=== PATIENT | female | born 1950 | race Caucasian/White ===

== ENCOUNTER → 2017-11-06 14:34 | Outpatient (CLI) | payer MEDICARE, OTHER, SELFPAY ==
--- NOTE | 2017-11-06 | DI.MRI.S_ITS ---
PROCEDURE: MR KNEE RT WO CON INDICATIONS: 67 year-old female with right knee pain for 2 months. TECHNIQUE: Noncontrast sagittal PD fast spin echo and T2 fast spin echo with fat saturation, sagittal 3-D FLASH with fat saturation; coronal T1 spin echo and PD fast spin echo with fat saturation, and axial PD fast spin echo with fat saturation through the knee. COMPARISON: None. FINDINGS: Image quality: Excellent. Menisci: On coronal image 21, there is a full thickness tear involving the posterior root ligament insertion of the medial meniscus, with resultant extrusion of the medial meniscal body. The lateral meniscus demonstrates normal morphology and internal signal. Cruciate ligaments: The anterior and posterior cruciate ligaments appear intact. Medial structures: The medial collateral ligament appears intact. The posterior oblique ligament, semimembranosus tendon insertions, oblique popliteal ligament, and meniscocapsular junction appear intact. Visualized portions of the pes anserinus tendons appear normal. No abnormal bursal fluid. Lateral structures: The lateral collateral ligament, long and short heads of the biceps femoris tendon appear intact. The popliteus tendon appears normal; the popliteofibular ligament appears intact. The posterosuperior and anteroinferior popliteomeniscal fascicles appear intact. The arcuate ligament appears intact, just anterior to the lateral inferior geniculate artery. Iliotibial band appears normal. Anterior structures: The quadriceps and patellar tendons appear intact. Patellar alignment is normal. No femoral trochlear dysplasia or ventral trochlear prominence. No edema in the infrapatellar fat pad. Bones and cartilage: No bone marrow contusions or fractures. There is regional full thickness cartilage loss involving the weightbearing portions of the medial femoral condyle and medial tibial plateau, with patchy subchondral marrow edema. The patellofemoral and lateral femorotibial compartment cartilage demonstrates normal thickness and signal. Joint space: There is small knee joint effusion. There is moderate unruptured Tang's cyst, measuring up to 5.1 cm in craniocaudal dimensions. No intra-articular bodies. IMPRESSION: 1. Full-thickness tear involves the posterior root ligament insertion of the medial meniscus, with resultant extrusion of the medial meniscal body. 2. 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 3. Moderate unruptured Tang's cyst and small knee joint effusion. Dictated by: Prabhu Pierce M.D. on 11/06/2017 at 15:52 Approved by: Prabhu Pierce M.D. on 11/06/2017 at 15:59
== END ==
PROVIDERS: Visit Provider Physical Medicine & Rehabilitation Pain Medicine
DX: S83.241A Other tear of medial meniscus, current injury, right knee, initial encounter (principal); M25.461 Effusion, right knee; M71.21 Synovial cyst of popliteal space [Baker], right knee
CPT/HCPCS: 73721

== ENCOUNTER → 2018-11-29 10:58 | Outpatient (CLI) | payer MEDICARE, OTHER, SELFPAY ==
--- NOTE | 2018-11-29 | DI.MRI.S_ITS ---
PROCEDURE: MR KNEE LT WO CON INDICATIONS: Pain in left knee TECHNIQUE: Noncontrast sagittal PD fast spin echo and T2 fast spin echo with fat saturation, sagittal 3-D FLASH with fat saturation; coronal T1 spin echo and PD fast spin echo with fat saturation, and axial PD fast spin echo with fat saturation through the knee. COMPARISON: [facility] [place], CR, XR KNEE ARTHRITIC SERIES LT, 11/18/2018, 13:34. [facility] [place], CR, XR KNEE ARTHRITIC SERIES RT, 09/17/2017, 14:16. FINDINGS: Image quality: Excellent. Menisci: There is medial meniscal extrusion. There is a radial tear involving the posterior horn the medial meniscus. More extensive degenerative tear is noted in the body and posterior horn of the medial meniscus. The lateral meniscus demonstrates normal morphology and internal signal. The meniscal root ligaments appear intact. Cruciate ligaments: The anterior and posterior cruciate ligaments appear intact. Medial structures: The medial collateral ligament appears intact. The posterior oblique ligament, semimembranosus tendon insertions, oblique popliteal ligament, and meniscocapsular junction appear intact. Visualized portions of the pes anserinus tendons appear normal. Trace pes anserinus bursal fluid is noted. Lateral structures: The lateral collateral ligament, long and short heads of the biceps femoris tendon appear intact. The popliteus tendon appears normal; the popliteofibular ligament appears intact. The posterosuperior and anteroinferior popliteomeniscal fascicles appear intact. The arcuate and fabellofibular ligaments appear intact, on either side of the lateral inferior geniculate artery. Iliotibial band appears normal. Anterior structures: The quadriceps and patellar tendons appear intact. There is mild edema in the proximal attachment of patellar tendon suspicious for mild tendinitis. Patellar alignment is normal. No femoral trochlear dysplasia or ventral trochlear prominence. No edema in the infrapatellar fat pad. Bones and cartilage: There is a 0.5 cm enchondroma in the distal femoral metaphysis. No fractures. There is mild cartilage thinning and fibrillation of the medial and lateral femorotibial compartments. Joint space: There is normal knee joint effusion. There is a small Tang's cyst. Fluid signal in posterior knee adjacent to the Tang's cyst is suspicious for leakage or rupturing of the Tang's cyst. Normal appearing synovial plicae are incidentally noted. IMPRESSION: 1. Medial meniscal extrusion. A radial tear is present in the posterior horn of the medial meniscus. There is also degenerative tear of both body and posterior horn of the medial meniscus. 2. Suspect a partially ruptured Tang's cyst. 3. Mild cartilage thinning and fibrillation of the medial and lateral femorotibial compartments. 4. Mild patellar tendinitis. 5. A 1.5 cm enchondroma in the distal femoral metaphysis. 6. Small knee joint effusion Dictated by: Katie Freitas M.D. on 11/29/2018 at 11:56 Approved by: Katie Freitas M.D. on 11/29/2018 at 18:49
== END ==
PROVIDERS: PCP Internal Medicine; Visit Provider Physical Medicine & Rehabilitation Pain Medicine
DX: M25.562 Pain in left knee (principal); S83.242A Other tear of medial meniscus, current injury, left knee, initial encounter; M76.52 Patellar tendinitis, left knee; D16.22 Benign neoplasm of long bones of left lower limb; M25.462 Effusion, left knee
CPT/HCPCS: 73721

== ENCOUNTER → 2019-06-02 12:01 | Outpatient (CLI) | payer MEDICARE, OTHER, SELFPAY ==
[2019-06-02 12:30] LABS: Add Manual Diff / Slide Review NO; Basophils Absolute Auto 0 /uL (0-100); Basophils Percent Auto 0.7 % (0-2); Eosinophils Absolute Auto 100 /uL (0-450); Eosinophils Percent Auto 2.4 % (2-4); Hemoglobin 15.1 g/dL (12.0-16.0); Lymphocytes Absolute Auto 1400 /uL (1100-4500); Lymphocytes Percent Auto 22.5 % (25-40); Mean Corpuscular HGB Conc 34.3 % (30-36); Mean Corpuscular Hemoglobin 31.4 PG (26-34); Mean Corpuscular Volume 91.5 fL (80-100); Monocytes Absolute Auto 500 /uL (0-900); Monocytes Percent Auto 8.2 % (3-14); Neutrophils Absolute Auto 4000 /uL (1500-7000); Neutrophils Percent Auto 66.2 % (50-75); Platelet Count 251 X10^3/uL (150-400); Red Blood Cell Count 4.82 X10^6/uL (4.0-5.2); White Blood Cell Count 6.1 X10^3/uL (4.5-11.0)
[2019-06-02 13:05] LABS: Carbon Dioxide 32 mmol/L (22-32); Chloride 101 mmol/L (98-107); HEMOLYSIS 26 (0-50); Potassium 4.8 mmol/L (3.4-5.1); Sodium 141 mmol/L (137-145)
== END ==
PROVIDERS: PCP Internal Medicine; Visit Provider Orthopaedic Surgery
DX: Z01.818 Encounter for other preprocedural examination (principal); Z01.812 Encounter for preprocedural laboratory examination
CPT/HCPCS: 36415; 80051; 85025; 93005; 93010

== ENCOUNTER 2019-06-25 09:50 | Day surgery (SDC) | payer MEDICARE, OTHER, SELFPAY ==
[2019-06-16 14:36] VITALS: BMI 28.9
[2019-06-25] VITALS (9 sets, daily range): BP systolic 91–150; BP diastolic 46–86; PULSE 74–87; RESP 13–20; TEMP 36.1–36.7; O2SAT 95–99; BMI 28.5
[2019-06-25] MEDS: LACTATED RINGERS 1,000 ML 42 ML IV (10:15)
[2019-06-25] MEDS: ACETAMINOPHEN 325 MG TABLET 975 MG PO (10:36)
[2019-06-25] MEDS: PREGABALIN 75 MG CAPSULE PO (10:37)
[2019-06-25] MEDS: CELECOXIB 200 MG CAPSULE PO (10:37)
--- NOTE | 2019-06-25 11:11 | SUR.PREOP ---
Pt. was c/o some nausea and l lot of anxiety. Notified anesthesia, received orders to administer 1mg versed IV now. At the time this author was about to administer the versed, the pt. had more questions for the Dr's. Nurse gave the pt. the option to hold off on versed so she (the pt.) could get her questions/needs addressed, pt agreed with holding off on versed for the time.
[2019-06-25] MEDS: MIDAZOLAM 2 MG/2 ML VIAL 1 MG IV (11:25)
--- NOTE | 2019-06-25 11:25 | SUR.PREOP ---
pt. medicated with 1mg versed IV at this time. questions have been addressed with piper
--- NOTE | 2019-06-25 11:29 | PM.PREOP ---
Pre-operative Note Interval Note History & Physical reviewed/Exam performed by Physician: Yes Changes to H&P: No
--- NOTE | 2019-06-25 11:29 | PM.OP.1 ---
Operative Date/Time/Diagnoses Date of procedure: 06/25/19 Time of procedure: 12:57 Pre-op diagnosis: Medial compartment osteoarthritis left knee Post-op diagnosis: same Procedure & Clinicians Procedure: Left knee medial compartment arthroplasty Same procedure as scheduled: Yes Indications: The patient presents today for medial compartment knee arthroplasty after failure of conservative treatment. The nature of the procedure including the risks and benefits, alternatives, postoperative course and expected outcome were discussed and all questions answered. Consent was obtained. Operative site confirmed and marked. Surgeon: Fernando Eaton [employer] Supervisor: Leon Potter Anesthesia Type: General and Local Operative Notes Findings: There was full-thickness cartilage loss over the medial femoral condyle. The patellofemoral joint was pristine. Closure Type: primary Specimen(s): none sent Prosthetic devices, grafts, tissues, transplants, or devices: JUK unicompartmental knee: 3 femur, 4 tibia and 8 mm polyethylene tray. Applied: implant(s) Blood products transfused: none Tourniquet time (min): 43 Procedure in detail: The patient was taken to the operative suite and placed under general anesthesia. The patient received prophylactic antibiotics 1 g of IV tranexamic acid prior to surgery. The lateral aspect of the leg was prepped and the knee injected with 20 mL of 1% lidocaine with epinephrine. The leg was prepped and draped in usual sterile fashion. The leg was exsanguinated with an Esmarch dressing and the tourniquet raised to 250 torr. A 10 cm medial parapatellar incision and arthrotomy was then made. The anterior aspect of the fat pad and medial meniscus was resected. The knee was then flexed and the tibia alignment guide placed. The proximal tibial cut was made at depth of 5 mm. Gaps were checked with blocks insuring that a 8 mm block fit in extension and a 6 mm block in flexion. The distal femoral cut was then made utilizing a 8 mm block. All remaining meniscus was then resected. Soft tissues were then injected with a combination of 40 mL of quarter percent Marcaine with epinephrine, 20 mL of Exparel. The femur was sized and the appropriate cutting guide placed with a 6 mm block. The peg holes were drilled and chamfer cuts made. Next the tibia was sized and drilled with the appropriate spoon trial. Trial femoral component and poly were then placed and the knee ranged. The knee had good restorationist of soft tissue tension without over correction. Range of motion was full. The trial components were removed. The knee was cleansed with Pulsavac irrigation and dried. The components were then cemented with high viscosity vacuum mixed bone cement. The knee was held in extension until the cement had adequately cured. The knee was then irrigated and inspected for any further debris. The extensor mechanism was closed at 90? of flexion with a few interrupted #1 Vicryl sutures and a running O V-LOC suture. The knee was then filled with 50 mL of solution containing 1 g of tranexamic acid and 10 mL of 0.5% Marcaine. The subcutaneous tissue was closed with 2-0 Vicryl. The skin was closed with a running 3 0 V-LOC suture and surgical adhesive. An Aquacel dressing was applied. The leg was then wrapped with an Daniel which will be kept on for the first 24 hours. The patient tolerated the procedure well and was returned to recovery room in good condition. Complications: none Post-operative Condition: stable Disposition: same day surgery Plan for aftercare: Standard postoperative protocol for partial knee replacement. Discharge to home. Follow-up in 2 weeks.
[2019-06-25] MEDS: CEFAZOLIN 2 GM/100 ML FROZ.PIGGY IV (11:42)
--- NOTE | 2019-06-25 12:09 | SUR.OPER ---
Supine on padded OR bed. Pillow under head, arms secured on padded armboards <90 degree abduction. Safety belt across torso. Non-operative leg secured with tape over blanket over lower leg. Foam padded brace at thigh of operative leg.
[2019-06-25] MEDS: LIDOCAINE 1% W/EPI 20 ML INJ (12:17)
[2019-06-25] MEDS: BUPIVACAINE 0.5% W/ EPI (PF) 20 ML, BUPIVACAINE LIPOSOME 266 MG, SODIUM CHLORIDE 0.9% 2... INJ (12:19)
[2019-06-25] MEDS: BUPIVACAINE 0.5% W/ EPI (PF) 10 ML, TRANEXAMIC ACID 1,000 MG, SODIUM CHLORIDE 0.9% 20 ML INJ (12:20)
--- NOTE | 2019-06-25 12:41 | SUR.OPER ---
GLASSES TO PACU WITH PATIENT IN LABELED CONTAINER
[2019-06-25] MEDS: ONDANSETRON 4 MG/2 ML INJ IV (13:11)
[2019-06-25] MEDS: fentaNYL 100 MCG/2 ML INJ IV (13:16)
== END 2019-06-25 12:59 | disposition home or self-care (01) ==
PROVIDERS: PCP Internal Medicine; Visit Provider Orthopaedic Surgery
PROC: (CPT 27446; principal; 2019-06-25 11:45)
DX: M17.12 Unilateral primary osteoarthritis, left knee (principal)
CPT/HCPCS: 27446; C1776; C9290; J0690; J1100; J1170; J2250; J2405; J2704; J3010

== ENCOUNTER → 2020-10-09 13:56 | Outpatient (CLI) | payer MEDICARE, OTHER, SELFPAY ==
--- NOTE | 2020-10-09 | DI.MRI.S_ITS ---
PROCEDURE: MR LUMBAR SPINE WO CON INDICATIONS: Radiculopathy, lumbar region TECHNIQUE: Noncontrast sagittal T1 spin echo and T2 fast echo, sagittal STIR, axial T1 and T2 fast spin echo through the lumbar spine. In cases with scoliosis, additional coronal T2 fast spin echo may be performed. COMPARISON: [facility], RG, MRI L-SPINE W/O CONTRAST, 12/01/2016, 13:30. FINDINGS: Image quality: Excellent. Alignment and Curvature: There is normal bony alignment. Bone Marrow: Marrow is of normal overall signal. No acute vertebral body compression fractures. Spinal Cord: Conus medullaris terminates at the normal level. Visualized cord demonstrates normal signal and size. Paraspinous Soft Tissues: No paravertebral masses. T12-L1: No spinal canal or neural foraminal stenosis. L1-L2: No spinal canal or neural foraminal stenosis. L2-L3: Disc bulge flattens the ventral thecal sac without mass effect upon the traversing L3 nerve roots. Foraminal components of the disc bulge contribute to mild bilateral neural foraminal narrowing. There is facet hypertrophy with small facet effusions. L3-L4: No spinal canal or neural foraminal stenosis. L4-L5: Disc bulge flattens and indents the ventral thecal sac. No mass effect upon the traversing L5 nerve roots. Foraminal components of the disc bulge and facet hypertrophy contribute to moderate bilateral neural foraminal narrowing. L5-S1: Disc bulge flattens the ventral thecal sac with mild mass effect upon the descending S1 nerve roots. Mild bilateral neural foraminal narrowing due to foraminal components of the disc bulge.. IMPRESSION: Degenerative changes in the lower lumbar spine which have slightly progressed at L4-L5 when compared with the 2017 examination. Moderate neural foraminal stenosis at L4-L5 with abutment of the exiting L4 nerve roots. Correlate for any corresponding L4 radicular symptoms. Mild displacement of the descending S1 nerve roots by disc material at L5-S1, similar to the prior study. Correlate for any corresponding radicular symptoms. Approved by: Jimmy Esquivel M.D. on 10/11/2020 at 9:56
== END ==
PROVIDERS: PCP Internal Medicine; Referring Provider Physical Medicine & Rehabilitation Pain Medicine; Visit Provider Physical Medicine & Rehabilitation Pain Medicine
DX: M47.26 Other spondylosis with radiculopathy, lumbar region (principal); M48.061 Spinal stenosis, lumbar region without neurogenic claudication; M48.07 Spinal stenosis, lumbosacral region
CPT/HCPCS: 72148

== ENCOUNTER → 2023-04-05 13:48 | Outpatient (CLI) | payer MEDICARE, OTHER, SELFPAY ==
--- NOTE | 2023-04-05 | DI.ECHO.S_ITS ---
[facility]+ [facility] +---------+ : : [address] : : : : [id number] : : : : Phone: [phone]+ Echocardiogram Report + + :Name: ROSHAN BACON Study Date: 04/05/2023 Height: 65 in : :[facility] ReadingLocation: Weight: 173 lb : : Gender: Female BSA: 1.9 m2 : :: 1950 Age: 73 yrs BP: 153/75 mmHg: :Reason For Study: Shortness of Breath : :Ordering Physician: ALICIA, : :JACQUIE Performed By: Laura Roth : :Referring: JACQUIE VARGAS : + + Interpretation Summary Normal sinus rhythm. Normal LV size, wall thickness, wall motion and LV systolic function. EF is 60-65%. Stage I diastolic dysfunction. Normal chamber sizes. Aortic sclerosis without stenosis. No prior study available for comparison. Procedure: A two-dimensional transthoracic echocardiogram with color flow and Doppler was performed. The study quality was technically adequate. There is no prior echocardiogram noted for this patient. The patient was in normal sinus rhythm during the exam. Left Ventricle: The left ventricle is normal in size. The ejection fraction is estimated to be 60-65%. Diastolic parameters suggest a relaxation abnormality of the left ventricle, consistent with probable normal filling pressures. Right Ventricle: The right ventricle is normal in size and function. Atria: The left atrial size is normal. Right atrial size is normal. There is no Doppler evidence for an interatrial shunt. Mitral Valve: The mitral valve is normal. There is no mitral valve stenosis. There is no mitral regurgitation noted. Aortic Valve: The aortic valve is trileaflet. There is mild aortic valve sclerosis. There is no aortic valve stenosis. No aortic regurgitation is present. Tricuspid Valve: The tricuspid valve is normal. There is no tricuspid stenosis. There is trace tricuspid regurgitation. Pulmonary artery pressures cannot be estimated because of the lack of a measurable TR jet velocity. Pulmonic Valve: The pulmonic valve is not well visualized. There is no pulmonic valvular stenosis. There is trace pulmonic regurgitation. Great Vessels: The aortic root is normal size. The ascending aorta is normal in size. The pulmonary artery is normal size. The IVC is of normal diameter and collapses greater than 50% with a sniff. This suggests a low right atrial pressure of 3 mm Hg. Pericardium/ Pleura There is a trivial pericardial effusion noted. There is no pleural effusion. MMode/2D Measurements & Calculations LVIDd: 4.1 cm LVOT diam: 1.8 cm LVIDs: 2.8 cm Ao root diam: 2.9 cm FS: 31.7 % asc Aorta Diam: 3.3 cm IVSd: 0.90 cm LVPWd: 1.4 cm LV sharma. diameter/BSA (cm/m^2): 2.2 LV sys. diameter/BSA (cm/m^2): 1.5 LA A2 area: 11.3 cm2 LVLs ap4: 6.3 cm LA A4 area: 11.5 cm2 LA length (vol): 4.9 cm LA vol: 22.5 ml LA vol index: 12.1 ml/m2 LVLd ap2: 6.8 cm TAPSE_phl: 2.2 cm LVLs ap2: 5.9 cm Doppler Measurements & Calculations Ao V2 max: 152.8 cm/sec LVOT Max Jorge Luis: 134.5 cm/sec Ao V2 mean: 104.5 cm/sec LV V1 max P.2 mmHg Ao max P.0 mmHg LV V1 VTI: 25.4 cm Ao mean P.3 mmHg ARIN(I,D): 2.2 cm2 Ao V2 VTI: 29.6 cm ARIN(V,D): 2.2 cm2 sev ratio: 0.86 ARIN indexed to BSA (cm^2/m^2): 1.2 MV E max jorge luis: 77.6 cm/sec PA V2 max: 102.0 cm/sec MV A max jorge luis: 122.0 cm/sec PA V2 mean: 66.2 cm/sec MV E/A: 0.64 PA mean P.0 mmHg Med Peak E' Jorge Luis: 6.3 cm/sec PA pr(Accel): 34.0 mmHg E/E' med: 12.4 Lat Peak E' Jorge Luis: 8.2 cm/sec E/E' lat: 9.5 E/e' average: 10.9 MV dec time: 0.18 sec SV(LVOT): 64.5 ml AV VR_phl: 0.88 ARIN(AKASH)/BSA_phl: 1.2 Electronically signed by: Norma Moise M.D. on Reading Physician:04/06/2023 04:40 AM
== END ==
PROVIDERS: PCP Internal Medicine; Referring Provider Internal Medicine; Visit Provider Internal Medicine
DX: R06.02 Shortness of breath (principal); I70.0 Atherosclerosis of aorta
CPT/HCPCS: 93306